=== PATIENT | female | born 1955 | race Caucasian/White ===

== ENCOUNTER 2025-03-09 22:45 | Emergency (ER) | payer MEDICARE ==
[2025-03-09 23:19] LABS: BASOPHILS ABSOLUTE AUTO 0.08 K/uL (0.00-0.10); BASOPHILS PERCENT AUTO 1.0 % (0.1-1.3); EOSINOPHILS ABSOLUTE AUTO 0.32 K/uL (0.00-0.40); EOSINOPHILS PERCENT AUTO 3.9 % (0.0-5.4); IMMATURE GRAN PERCENT AUTO 0.1 % (0.0-0.7); LYMPHOCYTES ABSOLUTE AUTO 2.90 K/uL (0.8-3.3); LYMPHOCYTES PERCENT AUTO 35.2 % (11.4-47.7); MONOCYTES ABSOLUTE AUTO 0.71 K/uL (0.20-0.90); MONOCYTES PERCENT AUTO 8.6 % (3.3-12.6); NEUTROPHILS ABSOLUTE AUTO 4.22 K/uL (1.0-7.6); NEUTROPHILS PERCENT AUTO 51.2 % (40.0-78.1); PLATELET COUNT,PLT 249 K/uL (130-375); RED BLOOD CELL COUNT 4.33 M/uL (3.77-5.24); WHITE BLOOD CELL COUNT,WBC 8.2 K/uL (3.2-11.0)
[2025-03-09 23:20] LABS: IMMATURE GRAN ABSOLUTE AUTO 0.01 K/uL (0.00-0.23)
[2025-03-09 23:35] LABS: BLOOD UREA NITROGEN,BUN 44.0 mg/dL (7-18); CARBON DIOXIDE,CO2 27.0 mmol/L (21-32); CHLORIDE,CL 109.0 mmol/L (100-108); CREATININE 0.9 mg/dL (0.6-1.0); EST CRCL DRUG DOSING (CG) 53.83 mL/min; ESTIMATED GFR 70.0 mL/min (>60); GLUCOSE RANDOM 110.0 mg/dL (74-106); POTASSIUM,K 4.3 mmol/L (3.6-5.2); SODIUM,NA 144.0 mmol/L (140-148)
== END 2025-03-10 00:09 | disposition home or self-care (01) ==
LOC: JP.ED 22:45
DX: R00.2 Palpitations (principal); E86.0 Dehydration; Z88.5 Allergy status to narcotic agent; Z79.899 Other long term (current) drug therapy
CPT/HCPCS: 36415; 71046; 71046-26; 80048; 83735; 84484; 85025; 93010; 99284; 99285